=== PATIENT | female | born 1965 | race Asian ===

== ENCOUNTER 2016-08-09 10:32 | Emergency (ER) | payer OTHER ==
--- NOTE | 2016-08-09 10:46 | UCPHY ---
H & P Patient Type: Established HPI/ROS: CHIEF COMPLAINT: Headache. HISTORY OF PRESENT ILLNESS: The patient is a 50-year-old female who presents with 3 days of headache. The pain initially was on the right side of her head and had a gradual onset. It is intermittent and occurs in sharp stabbing bursts that last 10 seconds. This continues for the last 3 days today being the 3rd day. She has not noted any think tipped and for this although did notice that in particular the other day, yesterday when she chewed was bothering her. At no time has she had any numbness or tingling paresthesias or speech trouble. This morning she woke up with headache on the left side that is constant. The pain does not radiate. The pain on the right side was worsened last night when she chewed food with the right side of her mouth. She is not usually prone to headaches. She denies neck pain, sore throat, shortness of breath, wheezing, fever, cough, congestion, rhinorrhea. She has been treating the pain with Tylenol. She asks about her recent right shoulder stiffness as to whether that be behavioral however there has been no pain going up the sternocleidomastoid or the trapezius whereas the pain is been out laterally overlying the shoulder directly REVIEW OF SYSTEMS: Constitutional: No fever, no chills. Eyes: No diplopia. ENT: No sore throat. Gastrointestinal: No nausea vomiting or diarrhea. No abdominal pain. Musculoskeletal: No back pain - though shoulder plain as noted above Skin: No rashes. Neurological: As above. Past Medical/Surgical History: Hypothyroidism. Social History: Nonsmoker. Smoking Status: Never smoked Physical Exam: General Appearance: Alert, no distress. Afebrile. Normal phonation. No respiratory distress. Eyes: Pupils equal and round no pallor or injection. No icterus ENT, Mouth: Mucous membranes moist. Pharynx not erythematous and without exudate. TM Clear. The scalp is little tender to the touch diffusely however there is no rashes noted. Neck: No adenopathy. Supple. No JVD. Trachea in midline. Neurological: Ox3. No motor weakness. Sensation intact. Gait nl. Cranial 2 through 12 intact. TMs are clear. The hearing is normal. No signs of vesicles in the canal. Skin: Warm and dry, no rashes. Musculoskeletal: No joint swelling. Psychiatric: Normal affect. Constitutional: Initial Vital Signs Temperature (C) 36.8 C 08/09/16 10:57 Heart Rate 72 08/09/16 10:57 Respiratory Rate 18 08/09/16 10:57 Blood Pressure 153/104 H 08/09/16 10:57 O2 Sat (%) 99 08/09/16 10:57 O2 Delivery Mode Room Air Allergies/Adverse Reactions: cephalexin monohydrate [From Keflex] Allergy (Verified 08/09/16 10:56) Home Medications: Medication Instructions Recorded THYROID 08/09/16 Medical Decision Making Differential Diagnosis: Differential diagnosis includes but is not limited to: Tension headache, viral illness, tumor, temporal arteritis. The bilateral nature makes this less likely be temporal arteritis. The spasmodic signing pain in the right yazdanism certainly could be trigeminal neuralgia however I would be reticent to start Tegretol at this time as so early in the course. I suspect the clinical course will settle down nicely and she will not require any further treatment or diagnostic studies. However should that not happened, certainly those other issues might be coming more to the fore. - Data Points Medications Given: Discontinued Medications Ibuprofen (Motrin) 600 mg PO EDNOW ONE Stop: 08/09/16 11:02 Last Admin: 08/09/16 11:08 Dose: 600 mg Departure - Departure Disposition: Home, Routine, Self-Care Clinical Impression: Headache Qualifiers: Headache type: unspecified Headache chronicity pattern: acute headache Intractability: not intractable Qualifier Code: (R51) Headache Condition: Good Instructions: Acute Headache (ED) Additional Instructions: Take 600mg Ibuprofen 3 times for one week, for headache. Return if fever. Follow up with family physician if not 100% improved in 5 days time. Return if symptoms are getting worse. Return to the Urgent Care or Emergency Department for dizziness, vomiting, confusion, worsening pain, or other serious worsening of condition. Referrals: Marylu Walker MD [Primary Care Provider] - As per Instructions - PQRS PQRS Measurement: Not applicable Report Scribed for: Blayne Deluca Report Scribed by: Rafael Causey Date of Report: 08/09/16 Time of Report: 10:46
[2016-08-09 11:00] VITALS: BP 153/104; PULSE 72; RESP 18; TEMP 98.2; O2SAT 99
[2016-08-09] MEDS ORDERED: IBUPROFEN 200 MG TAB PO ONE (11:01)
== END 2016-08-09 11:28 | disposition home or self-care (01) ==
LOC: CED 10:32
DX: R51 Headache (principal)
CPT/HCPCS: 99214-PO; G0463-PO